=== PATIENT | male | born 1995 | race Two or more races ===

== ENCOUNTER 2019-01-14 15:34 | Emergency (ER) | payer MEDICAID, OTHER ==
[~2019-01-14] VITALS: Ht 172.7 cm; Wt 88.9 kg
[2019-01-14 15:57] VITALS: BP 161/87
== END 2019-01-14 16:48 | disposition home or self-care (01) ==
LOC: ER 15:42
DX: R07.81 Pleurodynia (principal)
CPT/HCPCS: 71046